=== PATIENT | female | born 1985 | race African-American/Black ===

== ENCOUNTER 2017-02-04 21:37 | Emergency (ER) | payer OTHER ==
[2017-02-04 21:44] VITALS: BP 117/73; PULSE 95; TEMP 98.8; BMI 28.3
--- NOTE | 2017-02-04 22:19 | PDOC ---
History of Present Illness - General Chief Complaint: Pain, Acute Stated Complaint: MASTITIS Time Seen by Provider: 02/04/17 21:39 - History of Present Illness Initial Comments: This 31-year-old woman with a history of anemia but no other significant past medical history presents with 1 day history of left breast pain, especially with . Patient is currently breast-feeding her toddler daughter. Today, she noted pain in the left breast when she was lactating. She also noted tender areas of the upper portion of the left breast. No bleeding/pus/ tenderness of the nipple. No fever noted and patient has had no other acute symptoms in recent days. No history of mastitis. Neither she nor her child has ALLERGIES to any medications. Past History - Past Medical History Allergies/Adverse Reactions: Allergies Allergy/AdvReac Type Severity Reaction Status Date / Time No Known Allergies Allergy Verified 10/27/16 16:36 Home Medications: Ambulatory Orders Amoxicillin - [Amoxicillin 500mg Capsule -] 500 mg PO TID #15 capsule 02/04/17 Anemia: Yes Suicide Attempt (Hx): No - Reproductive History (#): 4 Para: 2 Cervical CA: No Dysfunctional Uterine Bleeding: No Endometrial CA: No Therapeutic (s) & number: No Tubal Ligation: No Spontaneous : 1 - Immunization History Immunization Up to Date: Yes - Psycho/Social/Smoking Cessation Hx Anxiety: No Suicidal Ideation: No Smoking History: Never smoked Have you smoked in the past 12 months: No Hx Alcohol Use: No Drug/Substance Use Hx: No Substance Use Type: None Review of Systems - Review of Systems Able to Perform ROS?: Yes Comments:: 12 point review of systems is negative except for what is noted in the history of present illness *Physical Exam - Vital Signs Last Vital Signs Temp Pulse Resp BP Pulse Ox 98.8 F 95 H 18 117/73 98 02/04/17 21:39 02/04/17 21:39 02/04/17 21:39 02/04/17 21:39 02/04/17 21:39 - Physical Exam Comments: GENERAL: The patient is awake, alert, and fully oriented, in no acute distress. Vital signs as noted. HEAD: Normal with no signs of trauma. EYES: Pupils equal, round and reactive to light, extraocular movements intact, sclera anicteric, conjunctiva clear with no pallor. ENT: moist mucous membranes. Ears normal, nares patent, oropharynx clear without exudates. NECK: Normal range of motion, supple without lymphadenopathy, JVD, or masses. LUNGS: Breath sounds equal, clear to auscultation bilaterally. No wheeze/ crackles. BREASTS: Right breast normal without tenderness or induration Left breast1 cm x 1 cm minimally erythematous , mildly indurated, moderately tender area of the medial upper quadrant; no fluctuance No crusting/bleeding/pus of the nipple HEART: Regular rate and rhythm, normal S1 and S2 without murmur or rub. ABDOMEN: Soft/nontender/nondistended. BS wnl. No guarding or rebound. No palpable masses. No hepatosplenomegaly. EXTREMITIES: Normal range of motion, no edema. No clubbing or cyanosis. No cords, erythema, or tenderness. NEUROLOGICAL: Cranial nerves II through XII grossly intact. Normal speech, normal gait. PSYCH: Normal mood, normal affect. SKIN: Warm, Dry, normal turgor, no rashes or lesions noted. Medical Decision Making - Medical Decision Making Clinical presentation most consistent with early mastitis of left breast. Since patient is not at risk for resistant organisms and is actively breast feeding will begin treatment with Amoxicillin 500mg TID for 1 week. She should apply warm packs to area. She should followup with Dr piper within the next several days. She should return to ER if she develops fever or worsening pain/warmth/ swelling in the breast *DC/Admit/Observation/Transfer Diagnosis at time of Disposition: Mastitis - Discharge Dispostion Disposition: HOME Condition at time of disposition: Stable - Prescriptions Prescriptions: Amoxicillin - [Amoxicillin 500mg Capsule -] 500 mg PO TID #15 capsule - Referrals Referrals: Mike Piper MD [Primary Care Provider] - - Patient Instructions Printed Discharge Instructions: Mastitis Additional Instructions: warm compresses to painful area Amoxicillin 500mg 3 X day for 5 days Return to the ER if pain worsens or you have persistent fever followup with Dr Piper within 5 days
[2017-02-04] MEDS ORDERED: CEPHALEXIN MONOHYDRATE 500 MG CAPSULE (UD) PO ONE (22:41)
[2017-02-04] MEDS ORDERED: CEPHALEXIN MONOHYDRATE 500 MG CAPSULE (UD) ONE (22:43)
== END 2017-02-04 22:58 | disposition home or self-care (01) ==
LOC: FER 21:37
DX: N61.0 Mastitis without abscess (principal); D64.9 Anemia, unspecified
CPT/HCPCS: 99282-25

== ENCOUNTER 2017-07-14 15:15 | Emergency (ER) | payer OTHER ==
[2017-07-14 15:21] VITALS: BMI 29.2
[2017-07-14 15:34] VITALS: BP 96/66; PULSE 68; TEMP 98.2
--- NOTE | 2017-07-14 15:58 | PDOC ---
History of Present Illness - General History Source: Patient Exam Limitations: No Limitations - History of Present Illness Initial Comments: 07/14/17 16:20 The patient is a 32 year old female, with a significant past medical history of anemia, who presents to the emergency department complaining of acute head pain for one day. The patient reports that she opened a door to the laundry room at work yesterday and a bar fell onto her head. The patient reports pain on the superior portion of her head. The patient reports associated symptoms of diffuse headache and blurry vision last night. The patient states she took Tylenol for the pain with mild relief. She reports eating breakfast this morning. She denies loss of consciousness. She denies recent fevers, chills, or dizziness. She denies recent nausea, vomit, diarrhea or constipation. She denies recent dysuria, frequency, urgency or hematuria. She denies recent chest pain or shortness of breath. Allergies: NKA . 07/14/17 16:23 <Bhupinder Luna - Last Filed: 07/14/17 16:24> <Allan Bui - Last Filed: 07/14/17 17:13> - General Chief Complaint: Pain, Acute Stated Complaint: HIT ON HEAD Time Seen by Provider: 07/14/17 15:57 Past History <Bhupinder Luna - Last Filed: 07/14/17 16:24> - Past Medical History Anemia: Yes Suicide Attempt (Hx): No - Reproductive History (#): 4 Para: 2 Cervical CA: No Dysfunctional Uterine Bleeding: No Endometrial CA: No Therapeutic (s) & number: No Tubal Ligation: No Spontaneous : 1 - Immunization History Immunization Up to Date: Yes - Psycho/Social/Smoking Cessation Hx Anxiety: No Suicidal Ideation: No Smoking History: Never smoked Have you smoked in the past 12 months: No Hx Alcohol Use: No Drug/Substance Use Hx: No Substance Use Type: None <Allan Bui - Last Filed: 07/14/17 17:13> - Past Medical History Allergies/Adverse Reactions: Allergies Allergy/AdvReac Type Severity Reaction Status Date / Time No Known Allergies Allergy Verified 07/14/17 15:16 Home Medications: Ambulatory Orders Ibuprofen [Motrin -] 600 mg PO QID #28 tablet 07/14/17 Review of Systems - Review of Systems Comments:: 07/14/17 16:24 GENERAL/CONSTITUTIONAL: No fever or chills. No weakness. HEAD, EYES, EARS, NOSE AND THROAT: No change in vision. No ear pain or discharge. No sore throat. CARDIOVASCULAR: No chest pain or shortness of breath. RESPIRATORY: No cough, wheezing, or hemoptysis. GASTROINTESTINAL: No nausea, vomiting, diarrhea or constipation. GENITOURINARY: No dysuria, frequency, or change in urination. MUSCULOSKELETAL: No joint or muscle swelling or pain. No neck or back pain. SKIN: No rash NEUROLOGIC: No vertigo, loss of consciousness, or change in strength/sensation. ENDOCRINE: No increased thirst. No abnormal weight change. HEMATOLOGIC/LYMPHATIC: No easy bleeding, or history of blood clots. ALLERGIC/IMMUNOLOGIC: No hives or skin allergy. <Bhupinder Luna - Last Filed: 07/14/17 16:24> *Physical Exam - Vital Signs Last Vital Signs Temp Pulse Resp BP Pulse Ox 98.2 F 68 16 96/66 100 07/14/17 15:15 07/14/17 15:15 07/14/17 15:15 07/14/17 15:15 07/14/17 15:15 - Physical Exam Comments: 07/14/17 16:24 GENERAL: Awake, alert, and fully oriented. No acute distress. HEAD: No signs of trauma EYES: PERRLA, EOMI, sclera anicteric, conjunctiva clear ENT: Auricles normal inspection, hearing grossly normal, nares patent, oropharynx clear without exudates. Moist mucosa NECK: Normal ROM, supple, no lymphadenopathy, JVD, or masses LUNGS: Breath sounds equal, clear to auscultation bilaterally. No wheezes, and no crackles HEART: Regular rate and rhythm, normal S1 and S2, no murmurs, rubs or gallops ABDOMEN: Soft, nontender, normoactive bowel sounds. No guarding, no rebound. No masses EXTREMITIES: Normal range of motion, no edema. No clubbing or cyanosis. No cords, erythema, or tenderness NEUROLOGICAL: Cranial nerves II through XII grossly intact. Normal speech, normal gait SKIN: Warm, Dry, normal turgor, no rashes or lesions noted. <Bhupinder Luna - Last Filed: 07/14/17 16:24> - Vital Signs Last Vital Signs Temp Pulse Resp BP Pulse Ox 98.2 F 68 16 96/66 100 07/14/17 15:15 07/14/17 15:15 07/14/17 15:15 07/14/17 15:15 07/14/17 15:15 <Allan Bui - Last Filed: 07/14/17 17:13> *DC/Admit/Observation/Transfer - Attestations Scribe Attestion: 07/14/17 16:25 Documentation prepared by Bhupinder Luna, acting as medical scientific liaison for Allan Bui DO. <Bhupinder Luna - Last Filed: 07/14/17 16:24> - Discharge Dispostion Admit: No - Attestations Physician Attestion: 07/14/17 15:57 I, Dr. Allan Bui, attest that this document has been prepared under my direction and personally reviewed by me in its entirety. I further attest, that it accurately reflects all work, treatment, procedures and medical decision -making performed by me. <Allan Bui - Last Filed: 07/14/17 17:13> Diagnosis at time of Disposition: Headache Qualifiers: Headache type: unspecified Headache chronicity pattern: episodic headache Intractability: intractable Qualified Code(s): R51 - Headache Head injury Qualifiers: Encounter type: initial encounter Qualified Code(s): S09.90XA - Unspecified injury of head, initial encounter - Discharge Dispostion Disposition: HOME Condition at time of disposition: Good - Prescriptions Prescriptions: Ibuprofen [Motrin -] 600 mg PO QID #28 tablet - Patient Instructions Printed Discharge Instructions: DI for Closed Head Injury Additional Instructions: [place]- Sorry this happened to you yesterday.. Take the motrin as needed for pain. The CT Scan was normal. No Restrictions. Best- Dr. Allan Bui
[2017-07-14] MEDS ORDERED: IBUPROFEN 400 MG TABLET (FP) PO ONE ×2 (16:01→16:28)
== END 2017-07-14 17:26 | disposition home or self-care (01) ==
LOC: FER 15:15
DX: R51 Headache (principal); S09.90XA Unspecified injury of head, initial encounter; W20.8XXA Other cause of strike by thrown, projected or falling object, initial encounter; Y93.89 Activity, other specified; Y92.89 Other specified places as the place of occurrence of the external cause
CPT/HCPCS: 70450-TC; 84703; 99282-25

== ENCOUNTER 2017-10-11 14:49 | Emergency (ER) | payer OTHER ==
[2017-10-11 15:02] VITALS: BP 105/70; PULSE 85; TEMP 98.6; BMI 30.5
[2017-10-11] MEDS ORDERED: ACETAMINOPHEN 325 MG TABLET (FP) PO ONE (15:04)
[2017-10-11] MEDS ORDERED: ACETAMINOPHEN 325 MG TABLET (FP) ONE (15:05)
--- NOTE | 2017-10-11 15:08 | PDOC ---
History of Present Illness - General History Source: Patient Exam Limitations: No Limitations <Cole Montalvo - Last Filed: 10/11/17 15:08> - General History Source: Patient Exam Limitations: No Limitations - History of Present Illness Initial Comments: 10/11/17 15:12 The patient is a 32 year old approximately 15 weeks female (), with no significant past medical history, who presents to the emergency department s/p injury approximately 1 week ago. The patient reports she is an employee at [employer], where last Wednesday, several kids were trying to exit the facility and she tried to stop them. The patient reports the kids ran straight into her and subsequently she hit her back on the door. Patient denies any associated head trauma, LOC, changes in vision, headache, dizziness, numbness or tingling. Patient reports going to [facility] shortly after to get an US for her baby, which was normal. Over the past couple of days, patient reports developing bilateral shoulder pain/ arm pain, back pain , and knee pain. Patient reports her shoulder pain is exacerbated when lifting her arms. She denies any abdominal pain, vaginal bleeding or discharge, nausea, vomiting, or changes in urination. She denies any fever, chills, headache, or dizziness. She denies any recent travel or sick contacts. Allergies: NKDA Past Surgical History: Section(X3) Social History: Non smoker. No ETOH or recreational drug use. PCP: Dr. Alvarado <Shashi Acharya - Last Filed: 10/11/17 15:15> - General Chief Complaint: Injury Stated Complaint: BACK, ARM, GROIN, KNEE PAIN Time Seen by Provider: 10/11/17 14:52 Past History - Past Medical History Anemia: Yes COPD: No - Reproductive History Is Patient Now?: Yes (15 WEEKS) (#): 4 Para: 2 Cervical CA: No Dysfunctional Uterine Bleeding: No Endometrial CA: No Therapeutic (s) & number: No Tubal Ligation: No Spontaneous : 1 - Immunization History Immunization Up to Date: Yes - Suicide/Smoking/Psychosocial Hx Smoking History: Never smoked Have you smoked in the past 12 months: No Hx Alcohol Use: No Drug/Substance Use Hx: No Substance Use Type: None <Cole Montalvo - Last Filed: 10/11/17 15:08> <AcharyaShashi sandoval - Last Filed: 10/11/17 15:15> - Past Medical History Allergies/Adverse Reactions: Allergies Allergy/AdvReac Type Severity Reaction Status Date / Time No Known Allergies Allergy Verified 07/14/17 15:16 Home Medications: Ambulatory Orders Acetaminophen [Tylenol] 650 mg PO Q4H PRN #20 tablet 10/11/17 Folic Acid 1 tab PO DAILY 10/11/17 Review of Systems - Review of Systems Able to Perform ROS?: Yes Comments:: 10/11/17 15:13 GENERAL/CONSTITUTIONAL: No fever or chills. No weakness. HEAD, EYES, EARS, NOSE AND THROAT: No change in vision. No ear pain or discharge. No sore throat. CARDIOVASCULAR: No chest pain or shortness of breath. RESPIRATORY: No cough, wheezing, or hemoptysis. GASTROINTESTINAL: No nausea, vomiting, diarrhea or constipation. GENITOURINARY: No dysuria, frequency, or change in urination. MUSCULOSKELETAL: Yes bilateral shoulder, arm, back and knee pain. No other joint or muscle swelling or pain. No neck pain. SKIN: No rash NEUROLOGIC: No headache, vertigo, loss of consciousness, or change in strength/ sensation. ENDOCRINE: No increased thirst. No abnormal weight change. HEMATOLOGIC/LYMPHATIC: No anemia, easy bleeding, or history of blood clots. ALLERGIC/IMMUNOLOGIC: No hives or skin allergy. <Shashi Acharya - Last Filed: 10/11/17 15:15> *Physical Exam - Vital Signs Last Vital Signs Temp Pulse Resp BP Pulse Ox 98.6 F 85 15 105/70 100 10/11/17 14:50 10/11/17 14:50 10/11/17 14:50 10/11/17 14:50 10/11/17 14:50 <Cole Montalvo - Last Filed: 10/11/17 15:08> - Vital Signs Last Vital Signs Temp Pulse Resp BP Pulse Ox 98.6 F 85 15 105/70 100 10/11/17 14:50 10/11/17 14:50 10/11/17 14:50 10/11/17 14:50 10/11/17 14:50 - Physical Exam Comments: 10/11/17 15:13 GENERAL: Awake, alert, and fully oriented, in no acute distress HEAD: No signs of trauma EYES: PERRLA, EOMI, sclera anicteric, conjunctiva clear ENT: Auricles normal inspection, hearing grossly normal, nares patent, oropharynx clear without exudates. Moist mucosa NECK: Normal ROM, supple, no lymphadenopathy, JVD, or masses LUNGS: Breath sounds equal, clear to auscultation bilaterally. No wheezes, and no crackles HEART: Regular rate and rhythm, normal S1 and S2, no murmurs, rubs or gallops ABDOMEN: Soft, nontender, normoactive bowel sounds. No guarding, no rebound. No masses EXTREMITIES: Bilateral upper back muscle tenderness to palpation, but no bony tenderness or step-offs appreciated. Bilateral trapezius tenderness, but full range of motion of all joints including bilateral shoulders. No edema. No clubbing or cyanosis. No cords or erythema NEUROLOGICAL: Cranial nerves II through XII grossly intact. Normal speech, normal gait SKIN: Warm, Dry, normal turgor, no rashes or lesions noted. <Shashi Acharya - Last Filed: 10/11/17 15:15> Medical Decision Making - Medical Decision Making 10/11/17 15:10 A portion of this note was documented by scribe services under my direction. I have reviewed the details of the note, within reason, and agree with the documentation with the following case summary and management plan written by me. Patient treated in the ED. Nursing notes are reviewed and incorporated into the medical decision-making. Vital signs reviewed. Peripheral IV access obtained by the nurse, laboratory studies are drawn and sent, reviewed and interpreted by myself. Vital Signs Temp Pulse Resp BP Pulse Ox 98.6 F 85 15 105/70 100 10/11/17 14:50 10/11/17 14:50 10/11/17 14:50 10/11/17 14:50 10/11/17 14:50 32-year-old female was currently 15 weeks presents with back and bilateral trapezius pain. Patient works at [employer]. She was trying to stop a child with a ran into her. She hit the back of the door. No loss of consciousness or head trauma. She was sent to [facility] where they ultrasounded her fetus and was normal. She denies any vaginal bleeding or abdominal pain this time. Because of the persistence of upper bilateral shoulder and upper back pain, came into the ED for further evaluation. I just suspect fracture at this time. I suspect this mostly muscluloskeletal pain. Tylenol when necessary and follow-up the primary care physician. I discussed the physical exam findings, ancillary test results and final diagnoses with the patient. I answered all of the patient's questions. The patient was satisfied with the care received and felt comfortable with the discharge plan and treatment plan. The patient will call their primary care physician within 24 hours to arrange follow-up and will return to the Emergency Department with any new, persistant or worsening symptoms. <Cole Montalvo - Last Filed: 10/11/17 15:08> *DC/Admit/Observation/Transfer - Discharge Dispostion Admit: No <Cole Montalvo - Last Filed: 10/11/17 15:08> - Attestations Scribe Attestion: 10/11/17 15:13 Documentation prepared by Shashi Acharya, acting as medical specialist for Cole Montalvo MD. <Shashi Acharya - Last Filed: 10/11/17 15:15> Diagnosis at time of Disposition: Musculoskeletal pain - Discharge Dispostion Disposition: HOME Condition at time of disposition: Stable - Prescriptions Prescriptions: Acetaminophen [Tylenol] 650 mg PO Q4H PRN #20 tablet PRN Reason: Pain - Referrals Referrals: Jonathan Alvarado MD [Primary Care Provider] - - Patient Instructions Printed Discharge Instructions: DI for Musculoskeletal Pain Additional Instructions: It may take several days before your symptoms improve. Take 650 mg tylenol every 4 hours as needed for pain. - Post Discharge Activity Forms/Work/School Notes: Back to Work
== END 2017-10-11 15:14 | disposition home or self-care (01) ==
LOC: FER 14:49
DX: O26.892 Other specified pregnancy related conditions, second trimester (principal); Z3A.15 15 weeks gestation of pregnancy; M79.1 Myalgia
CPT/HCPCS: 99282-25

== ENCOUNTER 2019-08-05 10:10 | Emergency (ER) | payer SELFPAY, OTHER | END 2019-08-05 12:10 | disposition home or self-care (01) | LOC: FER 10:10 ==

== ENCOUNTER 2019-08-29 16:45 | Emergency (ER) | payer OTHER ==
[2019-08-29 17:18] VITALS: BP 116/87; PULSE 85; TEMP 98.5; BMI 26.5
--- NOTE | 2019-08-29 22:39 | PDOC ---
Documentation entered by Tammy Shaffer SCRIBE, acting as scribe for Chica Alvarez MD. Chica Alvarez MD: This documentation has been prepared by the clementinaibeEdmund Lincy, SCRIBE, under my direction and personally reviewed by me in its entirety. I confirm that the documentation accurately reflects all work, treatment, procedures, and medical decision making performed by me. History of Present Illness - General Chief Complaint: Vaginal Sxs Stated Complaint: YEAST INFECTION Time Seen by Provider: 08/29/19 17:32 History Source: Patient Exam Limitations: No Limitations - History of Present Illness Initial Comments: 08/29/19 19:31 The patient is a 34 year old female with no reported past medical history who presents to the emergency department with vaginal irritation associated with whitish discharge. The patient was seen at the ER on 08/05 for similar complaints, was given a dose of diflucan, with relief for couple of days. The patient reports similar symptoms as last time. Denies fever or chills. Past History - Past Medical History Allergies/Adverse Reactions: Allergies Allergy/AdvReac Type Severity Reaction Status Date / Time No Known Allergies Allergy Verified 08/05/19 10:12 Home Medications: Ambulatory Orders Iud 08/05/19 Fluconazole [Diflucan] 150 mg PO ONCE #3 tablet 08/29/19 Miconazole Nitrate [Monistat 3] 1 each VG DAILY #1 kit 08/29/19 Anemia: Yes COPD: No - Reproductive History Is Patient Now?: No (#): 4 Para: 4 Cervical CA: No Dysfunctional Uterine Bleeding: No Endometrial CA: No Therapeutic (s) & number: No Tubal Ligation: No Spontaneous : 1 - Immunization History Immunization Up to Date: Yes - Psycho Social/Smoking Cessation Hx Smoking History: Never smoked Have you smoked in the past 12 months: No Hx Alcohol Use: Yes (SOCIAL) Drug/Substance Use Hx: No Substance Use Type: None Review of Systems - Review of Systems Able to Perform ROS?: Yes Comments:: 08/29/19 19:31 GENERAL/CONSTITUTIONAL: No fever or chills. No weakness. HEAD, EYES, EARS, NOSE AND THROAT: No change in vision. No ear pain or discharge. No sore throat. CARDIOVASCULAR: No chest pain or shortness of breath. RESPIRATORY: No cough, wheezing, or hemoptysis. GASTROINTESTINAL: No nausea, vomiting, diarrhea or constipation. GENITOURINARY: +vaginal irritation with discharge. No dysuria, frequency, or change in urination. MUSCULOSKELETAL: No joint or muscle swelling or pain. No neck or back pain. SKIN: No rash NEUROLOGIC: No headache, vertigo, loss of consciousness, or change in strength/ sensation. ENDOCRINE: No increased thirst. No abnormal weight change. HEMATOLOGIC/LYMPHATIC: No anemia, easy bleeding, or history of blood clots. ALLERGIC/IMMUNOLOGIC: No hives or skin allergy *Physical Exam - Vital Signs Last Vital Signs Temp Pulse Resp BP Pulse Ox 98.5 F 85 16 116/87 100 08/29/19 17:08 08/29/19 17:08 08/29/19 17:08 08/29/19 17:08 08/29/19 17:08 - Physical Exam Comments: 08/29/19 19:31 GENERAL: Afebrile. Awake, alert, and fully oriented, in no acute distress HEAD: No signs of trauma EYES: PERRLA, EOMI, sclera anicteric, conjunctiva clear ENT: Auricles normal inspection, hearing grossly normal, nares patent, oropharynx clear without exudates. Moist mucosa NECK: Normal ROM, supple. LUNGS: Breath sounds equal, clear to auscultation bilaterally. ABDOMEN: Soft, nontender. EXTREMITIES: Normal range of motion, no edema. NEUROLOGICAL: Cranial nerves II through XII grossly intact. Normal speech, normal gait SKIN: Warm, Dry, no rashes or lesions noted. Medical Decision Making - Medical Decision Making 08/29/19 22:38 Pt comes with a yeast infection that didn't clear with a single diflucan; went away and then came back. Pt will be treated with 3 days of diflucan days 1,4,7 and with Monistat 3 day kit. Stable to go home and follow with PMD Discharge - Discharge Information Problems reviewed: Yes Clinical Impression/Diagnosis: Vaginal candidiasis Condition: Good Disposition: HOME - Admission No - Additional Discharge Information Prescriptions: Fluconazole [Diflucan] 150 mg PO ONCE #3 tablet Miconazole Nitrate [Monistat 3] 1 each VG DAILY #1 kit - Follow up/Referral - Patient Discharge Instructions Patient Printed Discharge Instructions: Acidophilus and Other Probiotics ( Alternative Therapy), DI for Vaginal Yeast Infection - Post Discharge Activity
== END 2019-08-29 19:36 | disposition home or self-care (01) ==
LOC: FER 16:45
DX: B37.3 Candidiasis of vulva and vagina (principal)
CPT/HCPCS: 99281-25

== ENCOUNTER 2019-09-27 10:12 | Emergency (ER) | payer OTHER ==
[2019-09-27 10:19] VITALS: BP 118/74; PULSE 86; TEMP 98.6; BMI 26.5
--- NOTE | 2019-09-27 10:24 | PDOC ---
History of Present Illness - General Chief Complaint: Vaginal Sxs Stated Complaint: VAGINAL SYMPTOMS Time Seen by Provider: 09/27/19 10:23 - History of Present Illness Initial Comments: 09/27/19 10:42 Chief complaint: Vaginal itching HPI: Recurrent yeast infections temporarily improved with fluconazole but then recurring. Admits sitting for prolonged periods of time in a chair at work, excessive warmth and perspiration. Review of systems: Denies abdominal or pelvic pain, discolored discharge or bleeding, dysuria or other urinary tract symptoms. Remainder of systems reviewed and negative Past medical history: Recurrent yeast infections. Screened for chlamydia and GC , negative. No PID or other infections. No diabetes Social/family history as noted above. Otherwise negative Physical exam: Alert no acute distress cheerful and cooperative Afebrile, vital signs normal Abdominal exam benign. No distention or tenderness Vaginal exam deferred Impression: Recurrent yeast infection, probably due to excessive warmth and perspiration. Temporarily responsive to fluconazole but recurrent Plan: Modification of clothing and avoidance of heat. Terconazole cream intravaginally and externally. [employer] follow-up. Past History - Past Medical History Allergies/Adverse Reactions: Allergies Allergy/AdvReac Type Severity Reaction Status Date / Time No Known Allergies Allergy Verified 09/27/19 10:14 Home Medications: Ambulatory Orders Iud 08/05/19 Terconazole 45 gm VG DAILY #1 cream.appl 09/27/19 Anemia: Yes COPD: No - Reproductive History (#): 4 Para: 4 Cervical CA: No Dysfunctional Uterine Bleeding: No Endometrial CA: No Therapeutic (s) & number: No Tubal Ligation: No Spontaneous : 1 - Immunization History Immunization Up to Date: Yes - Psycho Social/Smoking Cessation Hx Smoking History: Never smoked Have you smoked in the past 12 months: No Hx Alcohol Use: No Drug/Substance Use Hx: No Substance Use Type: None *Physical Exam - Vital Signs Last Vital Signs Temp Pulse Resp BP Pulse Ox 98.6 F 86 19 118/74 100 09/27/19 10:14 09/27/19 10:14 09/27/19 10:14 09/27/19 10:14 09/27/19 10:14 Discharge - Discharge Information Problems reviewed: Yes Clinical Impression/Diagnosis: Yeast infection Condition: Stable Disposition: HOME - Admission No - Additional Discharge Information Prescriptions: Terconazole 45 gm VG DAILY #1 cream.appl - Follow up/Referral Referrals: Americo Loya MD [Staff Physician] - 1 week - Patient Discharge Instructions Patient Printed Discharge Instructions: DI for Vaginal Yeast Infection Additional Instructions: Wear loose fitting clothing, composed only of cotton. No nylon or other synthetic fibers Try to avoid heat and perspiration. Medication as directed See [employer] [employer] physician for further evaluation and treatment if no improvement. - Post Discharge Activity
== END 2019-09-27 10:44 | disposition home or self-care (01) ==
LOC: FER 10:12
DX: B37.3 Candidiasis of vulva and vagina (principal)
CPT/HCPCS: 99282-25

== ENCOUNTER 2020-11-27 23:44 | Emergency (ER) | payer OTHER ==
[2020-11-27 23:51] VITALS: BP 107/61; PULSE 84; TEMP 98.9; BMI 29.8
[2020-11-28 01:48] LABS: BASO % 0.6 % (0-2.0); EOS % 6.9 % (0-4.5); HEMATOCRIT 32.6 % (32.4-45.2); HEMOGLOBIN 10.8 GM/dL (10.7-15.3); LYMPH % 33.8 % (8-40); MCH 31.1 pg (25.7-33.7); MCHC 33.1 g/dl (32.0-36.0); MEAN CELL VOLUME 94.1 fl (80-96); MEAN PLT VOLUME 8.9 fl (7.5-11.1); MONO % 11.6 % (3.8-10.2); NEUT % 47.1 % (42.8-82.8); PLATELET COUNT 271 K/MM3 (134-434); RBC 3.46 M/mm3 (3.60-5.2); RDW 13.7 % (11.6-15.6); WHITE BLOOD COUNT 5.4 K/mm3 (4.0-10.0)
[2020-11-28 02:07] LABS: CALCIUM 8.1 mg/dL (8.5-10.1)
[2020-11-28 02:08] LABS: ALBUMIN 3.6 g/dl (3.4-5.0); BLOOD UREA NITROGEN 10.9 mg/dL (7-18)
[2020-11-28 02:11] LABS: CREATININE 0.8 mg/dL (0.55-1.3)
[2020-11-28 02:13] LABS: BILIRUBIN,TOTAL 0.2 mg/dL (0.2-1); TOT PROT 7.2 g/dl (6.4-8.2)
== END 2020-11-28 03:02 | disposition home or self-care (01) ==
LOC: FER 23:44
DX: O03.9 Complete or unspecified spontaneous abortion without complication (principal)
CPT/HCPCS: 36415; 76801-TC; 76817-TC; 80053; 84702; 85025; 86850; 86900; 86901; 99285-25

== ENCOUNTER 2021-06-16 16:06 | Emergency (ER) | payer OTHER ==
[2021-06-18 11:08] LABS: SARS-CoV-2 NAA Not Detected (Not Detected)
== END 2021-06-16 18:03 | disposition home or self-care (01) ==
LOC: JVIRT 16:06
DX: Z11.52 Encounter for screening for COVID-19 (principal)
CPT/HCPCS: C9803; Q3014-GT; U0003; U0005

== ENCOUNTER 2021-06-17 19:23 | Emergency (ER) | payer OTHER ==
[2021-06-17 19:38] VITALS: BP 113/79; PULSE 80; TEMP 99.2; BMI 28.3
== END 2021-06-17 22:43 | disposition home or self-care (01) ==
LOC: FER 19:23
DX: S13.4XXA Sprain of ligaments of cervical spine, initial encounter (principal); S46.912A Strain of unspecified muscle, fascia and tendon at shoulder and upper arm level, left arm, initial encounter; S70.01XA Contusion of right hip, initial encounter; Y04.0XXA Assault by unarmed brawl or fight, initial encounter; Y92.116 Garden or yard of children's home and orphanage as the place of occurrence of the external cause
CPT/HCPCS: 70360-TC-FY; 72050-TC-FY; 73030-TC-LT-FY; 73523-TC-FY; 81025; 99285-25

== ENCOUNTER 2021-11-21 19:05 | Emergency (ER) | payer OTHER ==
[2021-11-21 19:12] VITALS: BP 111/55; PULSE 70; TEMP 98.3; BMI 28.3
[2021-11-21] MEDS ORDERED: KETOROLAC TROMETHAMINE 30 MG/1 ML VIAL IVPUSH ONE (19:25)
[2021-11-21] MEDS ORDERED: SODIUM CHLORIDE 1,000 ML ONE (19:25)
[2021-11-21 19:44] LABS: HCG,QUALITATIVE URINE Negative
[2021-11-21] MEDS ORDERED: KETOROLAC TROMETHAMINE 30 MG/1 ML VIAL ONE (19:46)
[2021-11-21 20:08] LABS: ALBUMIN 4.2 g/dl (3.4-5.0); BILIRUBIN,TOTAL 0.2 mg/dl (0.2-1); CREATININE 0.8 mg/dl (0.55-1.3); TOT PROT 7.3 g/dl (6.4-8.2)
[2021-11-21 20:41] LABS: BASO % 0.6 % (0-2.0); EOS % 7.8 % (0-4.5); HEMATOCRIT 32.6 % (32.4-45.2); HEMOGLOBIN 10.5 GM/dL (10.7-15.3); LYMPH % 40.5 % (8-40); MCH 29.1 pg (25.7-33.7); MCHC 32.3 g/dl (32.0-36.0); MEAN CELL VOLUME 90.2 fl (80-96); MEAN PLT VOLUME 8.9 fl (7.5-11.1); MONO % 7.3 % (3.8-10.2); NEUT % 43.8 % (42.8-82.8); PLATELET COUNT 233 10^3/uL (134-434); RBC 3.62 M/mm3 (3.60-5.2); RDW 13.4 % (11.6-15.6); WHITE BLOOD COUNT 5.4 K/mm3 (4.0-10.0)
[2021-11-21 20:45] LABS: CALCIUM 8.9 mg/dl (8.5-10)
== END 2021-11-21 21:36 | disposition home or self-care (01) ==
LOC: FER 19:05
PROC: 3E033GC Introduction of Other Therapeutic Substance into Peripheral Vein, Percutaneous Approach (ICD-10-PCS; principal; 2021-11-21)
DX: R10.9 Unspecified abdominal pain (principal)
CPT/HCPCS: 36415; 74176-TC; 80053; 81003; 84703; 85025; 87086; 99285-25

== ENCOUNTER 2023-04-08 09:08 | Emergency (ER) | payer OTHER ==
[2023-04-08 09:21] VITALS: BP 96/64; PULSE 71; RESP 18; TEMP 98; BMI 28.3
[2023-04-08] MEDS ORDERED: KETOROLAC TROMETHAMINE 30 MG/1 ML VIAL IM ONE (09:38)
[2023-04-08] MEDS ORDERED: LIDOCAINE 5% TOPICAL PATCH TP ONE (09:38)
[2023-04-08] MEDS ORDERED: ACETAMINOPHEN 325 MG TABLET (FP) PO ONE (09:38)
[2023-04-08] MEDS ORDERED: ACETAMINOPHEN 325 MG TABLET (FP) ONE (09:39)
[2023-04-08] MEDS ORDERED: LIDOCAINE 5% TOPICAL PATCH ONE (09:39)
[2023-04-08] MEDS ORDERED: KETOROLAC TROMETHAMINE 30 MG/1 ML VIAL ONE (09:39)
[2023-04-08] MEDS ORDERED: LIDOCAINE PATCH REMOVAL MC SCH (22:00)
== END 2023-04-08 10:10 | disposition home or self-care (01) ==
LOC: FER 09:08
PROC: 3E0233Z Introduction of Anti-inflammatory into Muscle, Percutaneous Approach (ICD-10-PCS; principal; 2023-04-08)
DX: M54.50 Low back pain, unspecified (principal); M79.661 Pain in right lower leg; V43.52XA Car driver injured in collision with other type car in traffic accident, initial encounter
CPT/HCPCS: 99284-25